=== PATIENT | male | born 1965 | race African-American/Black ===

== ENCOUNTER 2019-02-07 11:23 | Emergency (ER) | payer OTHER ==
[2019-02-07 11:50] VITALS: BP 126/82; PULSE 90; TEMP 98.5
--- NOTE | 2019-02-07 12:05 | PDOC ---
History of Present Illness - General Chief Complaint: Pain Stated Complaint: RT FOOT PAIN Time Seen by Provider: 02/07/19 11:48 - History of Present Illness Initial Comments: 02/07/19 12:03 53-year-old male without comorbidities presents for evaluation of right ankle pain atraumatic in onset x5 days without systemic symptoms. Past History - Past Medical History Allergies/Adverse Reactions: Allergies Allergy/AdvReac Type Severity Reaction Status Date / Time Sulfa (Sulfonamide Allergy Verified 02/07/19 11:53 Antibiotics) COPD: No - Immunization History Immunization Up to Date: Yes - Psycho Social/Smoking Cessation Hx Smoking History: Never smoked Information on smoking cessation initiated: No Hx Alcohol Use: No Drug/Substance Use Hx: No Review of Systems - Review of Systems Constitutional: No: Chills, Fever, Malaise, Night Sweats Musculoskeletal: Yes: Joint Pain *Physical Exam - Vital Signs Last Vital Signs Temp Pulse Resp BP Pulse Ox 98.5 F 90 18 126/82 99 02/07/19 11:47 02/07/19 11:47 02/07/19 11:47 02/07/19 11:47 02/07/19 11:47 - Physical Exam 02/07/19 12:03 Right ankle skin color and temperature are normal. There is no tenderness. No gross sensorimotor deficits. Range of motion is limited pain with passive mid range of motion about the right ankle. Thigh and calf soft and nontender neurovascular intact Medical Decision Making - Medical Decision Making 02/07/19 12:03 Most likely gout versus pseudogout. I do not suspect a septic joint. Will treat with Medrol Dosepak and primary care follow-up Discharge - Discharge Information Problems reviewed: Yes Clinical Impression/Diagnosis: Gout attack Condition: Stable Disposition: HOME - Admission No - Follow up/Referral Referrals: Ventura Fox MD [Staff Physician] - - Patient Discharge Instructions Patient Printed Discharge Instructions: Gout, DI for Gout Additional Instructions: You may weight-bear as tolerated with crutches. Please take the Medrol Dosepak as directed. You may supplement pain medication with Tylenol as directed on top of the Medrol Dosepak. Return to the emergency room for worsening symptoms. And without fail follow-up with your primary care doctor in 1 to 2 days for further evaluation and treatment options. - Post Discharge Activity
== END 2019-02-07 12:37 | disposition home or self-care (01) ==
LOC: JERFT 11:23
DX: M10.9 Gout, unspecified (principal)
CPT/HCPCS: 99281-25

== ENCOUNTER 2020-04-30 20:31 | Emergency (ER) | payer OTHER ==
[2020-04-30 20:36] VITALS: BP 124/80; PULSE 87; TEMP 98.5; BMI 28.8
[2020-04-30] MEDS ORDERED: KETOROLAC TROMETHAMINE 30 MG/1 ML VIAL IM ONE (22:46)
[2020-04-30] MEDS ORDERED: LIDOCAINE 5% TOPICAL PATCH TP ONE (22:46)
[2020-04-30] MEDS ORDERED: diazePAM 5 MG TABLET PO ONE (22:46)
[2020-04-30] MEDS ORDERED: LIDOCAINE 5% TOPICAL PATCH ONE (23:28)
[2020-04-30] MEDS ORDERED: diazePAM 5 MG TABLET ONE (23:28)
[2020-04-30] MEDS ORDERED: KETOROLAC TROMETHAMINE 30 MG/1 ML VIAL ONE (23:29)
[2020-05-01] MEDS ORDERED: LIDOCAINE PATCH REMOVAL MC ONE (11:00)
== END 2020-05-01 00:07 | disposition home or self-care (01) ==
LOC: JER 20:31
PROC: 3E0233Z Introduction of Anti-inflammatory into Muscle, Percutaneous Approach (ICD-10-PCS; principal; 2020-04-30)
DX: M54.5 Low back pain (principal)
CPT/HCPCS: 99284-25